=== PATIENT | male | born 1935 | race Caucasian/White ===

== ENCOUNTER 2018-11-07 09:30 | Emergency (ER) | payer OTHER, MEDICARE ==
[2018-11-07 10:01] VITALS: PULSE 84
--- NOTE | 2018-11-07 10:03 | PDOC ---
Attending Attestation - Resident Resident Name: HermosilloKiana - HPI HPI: 11/07/18 11:00 Pt presents to the Ed after sent from endoscopy for high blood pressure. Patient is asymptomatic. Took his blood pressure medications, but took them during his bowel prep. - Physicial Exam PE: 11/07/18 11:24 Agree with resident exam. Patient is alert and oriented and in no acute distress. ambulatory in the ED. - Medical Decision Making 11/07/18 11:28 Pt presents to the ED after sent in for hypertension. Asymptomatic. Hypertension resolved spontaneously. Will discharge home. patient will follow up with PMD tomorrow.
[2018-11-07 10:10] VITALS: BP 158/68; TEMP 98.4; BMI 27.1
--- NOTE | 2018-11-07 11:03 | PDOC ---
History of Present Illness - General Chief Complaint: Blood Pressure Problem Stated Complaint: HYPERTENSION Time Seen by Provider: 11/07/18 10:01 History Source: Patient Exam Limitations: No Limitations - History of Present Illness Initial Comments: 11/07/18 10:33 83YOM with h/o HTN and prior left pelvic fxr who p/w elevated BP noted at EGD/ colonoscopy suite (noted by their provider to be 207/112 ). He has been on carvedilol chronically and his dose was decreased back in from 6.5mg bid to 3.25 bid. He took his medication yesterday (morning and evening doses) but the evening dose was taken during active bowel prep for the colonoscopy, at which time he was passing liquid frequently. The patient also took his morning carvedilol today. He denies any symptoms at all and notes wanting to go home. Past History - Past Medical History Allergies/Adverse Reactions: Allergies Allergy/AdvReac Type Severity Reaction Status Date / Time No Known Allergies Allergy Verified 04/24/14 06:41 Home Medications: Ambulatory Orders Silodosin [Rapaflo] 8 mg PO DAILY 02/15/14 Atorvastatin Ca [Lipitor] 20 mg PO DAILY 04/18/14 Cholecalciferol (Vitamin D3) [Vitamin D3] 5,000 unit PO DAILY 04/18/14 Dutasteride [Avodart] 0.5 mg PO HS 04/18/14 Pantoprazole Sodium [Protonix -] 40 mg PO DAILY tablet.ec 04/26/14 Carvedilol 3.125 mg PO BID 11/04/18 Cyanocobalamin (Vitamin B-12) [Vitamin B12] 2,500 mcg PO DAILY 11/04/18 Anemia: No Asthma: No Cancer: No Cardiac Disorders: No CVA: No COPD: No CHF: No Dementia: No Diabetes: No GI Disorders: Yes (ACID REFLUX) Disorders: Yes (BPH) HTN: Yes Hypercholesterolemia: Yes Liver Disease: No Seizures: No Thyroid Disease: No - Surgical History Appendectomy: Yes Cholecystectomy: No Orthopedic Surgery: Yes (RIGHT LEG 1945,LEFT HIP REPLACEMENT) - Immunization History Immunization Up to Date: No - Psycho Social/Smoking Cessation Hx Smoking History: Never smoked Have you smoked in the past 12 months: No Information on smoking cessation initiated: No Hx Alcohol Use: No Drug/Substance Use Hx: No Substance Use Type: None Hx Substance Use Treatment: No Review of Systems - Review of Systems Able to Perform ROS?: Yes Comments:: 11/07/18 11:03 GEN: no fever, chills, malaise, generalized weakness, or weight change HEENT: no ear pain, sore throat, vision change, or eye pain CV: no chest pain, palpitations, lightheadedness, syncope, or edema RESP: no cough, wheezing, or SOB GI: no abdominal pain, nausea, vomiting, diarrhea, constipation, or white/black/ bloody stool : no dysuria, hematuria, incontinence, retention, bleeding, or discharge MSK: no neck/back pain, muscle weakness/pain, or joint swelling/pain NEURO: no headache, seizure, vertigo, numbness, tingling, or focal weakness PSYCH: no substance use, no behavior change SKIN: no jaundice, no rash ROS otherwise negative except as noted in HPI *Physical Exam - Vital Signs Last Vital Signs Temp Pulse Resp BP Pulse Ox 98.4 F 84 16 158/68 98 11/07/18 10:05 11/07/18 10:05 11/07/18 10:05 11/07/18 10:05 11/07/18 10:05 - Physical Exam Comments: 11/07/18 11:03 GENERAL: well-appearing, A/Ox4, no distress, answers questions appropriately, extremely pleasant, sitting in wheelchair HEENT: PERRLA, EOMI, moist mucous membranes NECK/BACK: no midline ttp, no spinal stepoff or deformity, no hematoma, full ROM , neck supple CARDIOVASCULAR: regular rate/rhythm, normal S1S2, no MGR, strong peripheral pulses, capillary refill <2 seconds, extremities wwp, no edema LUNGS/RESPIRATORY: no respiratory distress, CTAB GI/ABDOMEN: symmetric [id number], normoactive BS, soft, no ttp, no midline pulsatile masses : no CVA tenderness EXTREMITIES: no muscle atrophy, no acute deformity SKIN: warm and dry, no pallor, no jaundice, no rash, no bruising, no skin breakdown, no cuts, no lesions NEUROLOGICAL: GCS 15, CN II-XII grossly intact, 5/5 strength proximally and distally, no facial droop Medical Decision Making - Medical Decision Making 11/07/18 11:03 83YOM with h/o HTN presents with report of asymptomatic high blood pressure this morning in the setting of bowel prep yesterday for colonoscopy. Initial Vital Signs Temp Pulse Resp BP Pulse Ox 97.4 F L 84 18 150/102 H 96 11/07/18 09:55 11/07/18 09:55 11/07/18 09:55 11/07/18 09:55 11/07/18 09:55 Exam unremarkable. Repeat BP is 104/84 and patient remains asymptomatic. He does not want to go back to endoscopy suite and prefers to do endoscopy/ colonoscopy later. 11/07/18 11:23 Most likely the patient's evening dose of carvedilol was simply not absorbed last night. His BP has stabilized here in the ED and he was never symptomatic. Workup is not concerning for emergency-level pathology at this time. This patient is appropriate for discharge with close outpatient follow up. They are comfortable with this plan and will follow up with their primary care provider in 1-3 days. Specific return precautions are discussed and they will come back to the ER if necessary. Discharge - Discharge Information Problems reviewed: Yes Clinical Impression/Diagnosis: Hypertension Qualifiers: Hypertension type: unspecified Qualified Code(s): I10 - Essential (primary) hypertension Condition: Stable Disposition: HOME - Admission No - Follow up/Referral - Patient Discharge Instructions Patient Printed Discharge Instructions: DI for High Blood Pressure Additional Instructions: You were seen in the ER for high blood pressure. We did an exam, and retook your blood pressure, which was normal here in the ER. After our assessment, we do not believe you are having a medical emergency at this time, and we believe you are safe to go home. Please follow up with your regular PCP doctor in 1-3 days. Call their clinic, tell them you were seen in the ER, and tell them you need a follow-up appointment . If you have any new or worsening symptoms, especially headache, vision changes, numbness, tingling, weakness of one part of your body, neck pain, chest pain, shortness of breath, dizziness, or other symptoms, please come back to the ER at any time (24 hours a day). If you are having severe or life threatening symptoms, or symptoms that make it unsafe to drive or have someone drive you, please call 911. Otherwise, keep taking your blood pressure and other medications as prescribed. - Post Discharge Activity
== END 2018-11-07 12:00 | disposition home or self-care (01) ==
LOC: JER 09:30
DX: I10 Essential (primary) hypertension (principal); E78.00 Pure hypercholesterolemia, unspecified; N40.0 Benign prostatic hyperplasia without lower urinary tract symptoms; K21.9 Gastro-esophageal reflux disease without esophagitis; Z96.642 Presence of left artificial hip joint
CPT/HCPCS: 99281-25

== ENCOUNTER 2018-11-10 12:32 | Emergency (ER) | payer OTHER, MEDICARE ==
[2018-11-10 12:43] VITALS: BMI 26.4
--- NOTE | 2018-11-10 13:02 | PDOC ---
History of Present Illness - General Chief Complaint: Blood Pressure Problem Stated Complaint: BP PROBLEM - History of Present Illness Initial Comments: The pt is an 83M w/ a history of HTN, HLD, s/p R hip arthroplasty who presents for evaluation of HTN (180s at home). The pt then took an extra dose of his Carvedilol at 1100 (3.125mg). He noted persistent HTN and thus presented for evaluation. He denies ALEMAN, vision changes, chest pain, trouble breathing, SHEIKH, N/ V, dysuria, hematuria, or fever. His PCP is in the [facility] and no change has been made to his medications in the last 6-9 months. 11/10/18 13:19 Past History - Past Medical History Allergies/Adverse Reactions: Allergies Allergy/AdvReac Type Severity Reaction Status Date / Time No Known Allergies Allergy Verified 04/24/14 06:41 Home Medications: Ambulatory Orders Silodosin [Rapaflo] 8 mg PO DAILY 02/15/14 Atorvastatin Ca [Lipitor] 20 mg PO DAILY 04/18/14 Cholecalciferol (Vitamin D3) [Vitamin D3] 5,000 unit PO DAILY 04/18/14 Dutasteride [Avodart] 0.5 mg PO HS 04/18/14 Pantoprazole Sodium [Protonix -] 40 mg PO DAILY tablet.ec 04/26/14 Carvedilol 3.125 mg PO BID 11/04/18 Cyanocobalamin (Vitamin B-12) [Vitamin B12] 2,500 mcg PO DAILY 11/04/18 Anemia: No Asthma: No Cancer: No Cardiac Disorders: No CVA: No COPD: No CHF: No Dementia: No Diabetes: No GI Disorders: Yes (ACID REFLUX) Disorders: Yes (BPH) HTN: Yes Hypercholesterolemia: Yes Liver Disease: No Seizures: No Thyroid Disease: No - Surgical History Appendectomy: Yes Cholecystectomy: No Orthopedic Surgery: Yes (RIGHT LEG 1945,LEFT HIP REPLACEMENT) - Immunization History Immunization Up to Date: No - Psycho Social/Smoking Cessation Hx Smoking History: Never smoked Have you smoked in the past 12 months: No Hx Alcohol Use: No Drug/Substance Use Hx: No Substance Use Type: None Hx Substance Use Treatment: No Review of Systems - Review of Systems Able to Perform ROS?: Yes Comments:: GENERAL/CONSTITUTIONAL: No fever or chills. No weakness HEAD, EYES, EARS, NOSE AND THROAT: No change in vision. No change in hearing. No sore throat CARDIOVASCULAR: No chest pain or shortness of breath RESPIRATORY: Denies cough, hemoptysis GASTROINTESTINAL: No nausea, vomiting, diarrhea or constipation GENITOURINARY: No dysuria, frequency, or change in urination MUSCULOSKELETAL: No joint or muscle swelling or pain. No neck or back pain SKIN: No rash NEUROLOGIC: No headache, vertigo, loss of consciousness, or change in strength/ sensation ENDOCRINE: No increased thirst. No abnormal weight change HEMATOLOGIC/LYMPHATIC: No anemia, easy bleeding, or history of blood clots ALLERGIC/IMMUNOLOGIC: No hives or skin allergy 11/10/18 13:22 Is the patient limited Guinean proficient: No *Physical Exam - Vital Signs Last Vital Signs Temp Pulse Resp BP Pulse Ox 98.2 F 65 19 198/88 H 93 L 11/10/18 12:38 11/10/18 12:38 11/10/18 12:38 11/10/18 12:38 11/10/18 12:38 - Physical Exam Comments: GENERAL: Awake, alert, and oriented to person/place/time, in no acute distress HEAD: No signs of trauma, normocephalic, atraumatic EYES: PERRLA, EOMI, sclera anicteric, conjunctiva clear ENT: Hearing grossly normal, nares patent, oropharynx clear without exudates. No uvular deviation. Moist mucosa LUNGS: No distress, speaks in full sentences, clear to auscultation bilaterally HEART: Regular rate and rhythm, normal S1 and S2, no murmurs appreciated, peripheral pulses normal and equal bilaterally ABDOMEN: Soft, nontender, normoactive bowel sounds. No guarding, no rebound EXTREMITIES: Normal inspection, Normal range of motion, no edema. No clubbing or cyanosis NEUROLOGICAL: Cranial nerves II through XII grossly intact. 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 ED Course Pt repeat SBP 186 Pt w/o symptoms As pt is asymptomatic and took an extra hose of his home medication, will observe pt for hypotension Low suspicion for end-organ damage given history of BPs in 150s-160s and lack of symptoms. Will reassess 11/10/18 13:23 Pt's BP improved to SBP 150s, pt continues to be asymptomatic Plan for D/C w/ PCP f/u Discharge instructions and return precautions given Patient in agreement and verbalized understanding Dispo: Home 11/10/18 15:05 Discharge - Discharge Information Problems reviewed: Yes Clinical Impression/Diagnosis: Hypertension Qualifiers: Hypertension type: unspecified Qualified Code(s): I10 - Essential (primary) hypertension Condition: Improved Disposition: HOME - Admission No - Follow up/Referral Referrals: [facility] [Provider Group] - Patient Discharge Instructions Patient Printed Discharge Instructions: DI for High Blood Pressure Additional Instructions: You were seen in the Emergency Department for evaluation of high blood pressure. Your pressure normalized while here. Continue to take your medication as prescribed. Review the handout provided at discharge. Follow up with your primary care provider. Return to the Emergency Department if you develop fevers/ chills, headache, vision changes, chest pain, blood in your urine, worsening symptoms, or any new/concerning symptoms. - Post Discharge Activity
--- NOTE | 2018-11-10 15:10 | PDOC ---
Attending Attestation - Resident Resident Name: BrendenlisaArmond - ED Attending Attestation I have performed the following: I have examined & evaluated the patient, The case was reviewed & discussed with the resident, I agree w/resident's findings & plan - HPI HPI: 11/10/18 15:10 83M w/ a history of HTN, HLD, s/p R hip arthroplasty who presents for evaluation of HTN (180s at home). The pt then took an extra dose of his Carvedilol at 1100 (3.125mg). He noted persistent HTN and thus presented for evaluation. He denies ALEMAN, vision changes, chest pain, trouble breathing, SHEIKH, N/ V, dysuria, hematuria, or fever. - Physicial Exam PE: 11/10/18 15:10 Agree with the resident's HPI and PE as documented in the electronic medical record. NAD, well appearing, EOMI, PERRL, MMM, nl conjunctiva, anicteric; neck supple. lungs clear, RRR, abdomen soft nontender. Back nontender. CUTLER x4, no focal neuro deficits. No peripheral edema. normal color for ethnicity, WWP. no calf tenderness - Medical Decision Making 11/10/18 15:11 Vital Signs Temp Pulse Resp BP Pulse Ox 98.2 F 54 L 19 155/76 93 L 11/10/18 12:38 11/10/18 14:29 11/10/18 12:38 11/10/18 14:29 11/10/18 12:38 ED course: VS reviewed, downtrending BP (initial 198/90) asymptomatic HTN no indication for treatment and no indication test as low suspicion for end organ damage repeat BP at discharge down to 155/75 clinical recheck BP with PCP, stable for discharge, return precautions compliance with regimen no additional agents warranted at this time 11/10/18 15:12
[2018-11-10 15:23] VITALS: BP 146/78; PULSE 88; TEMP 98.5
== END 2018-11-10 15:25 | disposition home or self-care (01) ==
LOC: SUPCPDRO 12:32 → JER 12:32
DX: I10 Essential (primary) hypertension (principal); E78.00 Pure hypercholesterolemia, unspecified; N40.0 Benign prostatic hyperplasia without lower urinary tract symptoms; K21.9 Gastro-esophageal reflux disease without esophagitis; Z96.641 Presence of right artificial hip joint
CPT/HCPCS: 99281-25

== ENCOUNTER 2019-03-24 06:49 | Day surgery (SDC) | payer OTHER, MEDICARE ==
[2019-03-23 13:28] VITALS: BMI 28.4
[2019-03-24 09:59] VITALS: BP 156/81; PULSE 72; TEMP 98
--- NOTE | 2019-03-28 15:49 | PATH ---
Surgical Pathology Report Patient Name: DARSHAN NOLAND [facility]. Rec. #: [id number] /Age/Gender: 1935 (Age: 83) / M Account: [id number] Location: U-ENDOSCOPY Taken: 03/24/2019 Received: 03/24/2019 Reported: 03/28/2019 Physicians: Dannie Huang M.D. Specimen(s) Received A: SECOND PORTION DUODENUM AND BULB B: BX ANTRUM C: GE JUNCTION D: POLYPS FROM TRANSVERSE COLON, COLD SNARE E: POLYP FROM RIGHT COLON F: POLYP FROM CECUM, COLD SNARE Clinical History GERD, early satiety, screening for malignant neoplasm Postoperative diagnosis: Gastritis, GERD, hiatal hernia, diverticulosis Final Diagnosis A. SECOND PORTION OF DUODENUM AND BULB, BIOPSY: MODERATE CHRONIC DUODENITIS. B. 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 IMMUNOSTAIN IS NEGATIVE FOR H. PYLORI ORGANISMS. C. GE JUNCTION, BIOPSY: ESOPHAGOGASTRIC JUNCTION (SQUAMOCOLUMNAR) MUCOSA WITH NO PATHOLOGIC FINDINGS. NEGATIVE FOR INTESTINAL METAPLASIA. D. TRANSVERSE COLON, POLYPS, POLYPECTOMY: TUBULAR ADENOMA (S). E. RIGHT COLON, POLYP, BIOPSY: VEGETABLE MATTER. Comment: No colonic mucosa is identified. F. CECUM, POLYP, POLYPECTOMY: TUBULAR ADENOMA. Electronically Signed Christa Coughlin M.D. Gross Description A. Received in formalin, labeled "second portion of duodenum and bulb" are 3 lombardo, irregular portions of soft tissue averaging 0.3 cm. in greatest dimension. The specimens are submitted in toto in one cassette. B. Received in formalin, labeled "biopsy antrum" are 3 lombardo, irregular portions of soft tissue ranging from 0.3-0.8 cm. in greatest dimension. The specimens are submitted in toto in one cassette. C. Received in formalin, labeled "biopsy GE junction" are 2 lombardo, irregular portions of soft tissue measuring 0.4 and 0.5 cm. in greatest dimension. The specimens are submitted in toto in one cassette. D. Received in formalin, labeled "polyps transverse colon" are 3 lombardo, irregular portions of soft tissue ranging from 0.3-0.4 cm. in greatest dimension. The specimens are submitted in toto in one cassette. E. Received in formalin labeled "polyp right colon," is a 0.6 x 0.5 x 0.1 cm aggregate of organic debris. No definitive soft tissue is identified. The formalin is filtered and the specimen is entirely submitted in one cassette. F. Received in formalin, labeled "polyp from cecum" are 2 lombardo, irregular portions of soft tissue measuring 0.1 and 0.2 cm. in greatest dimension. The specimens are submitted in toto in one cassette. [facility]
== END 2019-03-24 10:49 | disposition home or self-care (01) ==
LOC: JASU-ENDO 06:49
PROVIDERS: ATTEND Internal Medicine Gastroenterology
PROC: 0DB68ZX Excision of Stomach, Via Natural or Artificial Opening Endoscopic, Diagnostic (ICD-10-PCS; 2019-03-24)
PROC: 0DB48ZX Excision of Esophagogastric Junction, Via Natural or Artificial Opening Endoscopic, Diagnostic (ICD-10-PCS; 2019-03-24)
PROC: 0DBK8ZX Excision of Ascending Colon, Via Natural or Artificial Opening Endoscopic, Diagnostic (ICD-10-PCS; 2019-03-24)
PROC: 0DBL8ZX Excision of Transverse Colon, Via Natural or Artificial Opening Endoscopic, Diagnostic (ICD-10-PCS; 2019-03-24)
PROC: 0DBH8ZX Excision of Cecum, Via Natural or Artificial Opening Endoscopic, Diagnostic (ICD-10-PCS; 2019-03-24)
PROC: 0DB98ZX Excision of Duodenum, Via Natural or Artificial Opening Endoscopic, Diagnostic (ICD-10-PCS; principal; 2019-03-24 08:00)
DX: Z12.11 Encounter for screening for malignant neoplasm of colon (principal); D12.2 Benign neoplasm of ascending colon; D12.3 Benign neoplasm of transverse colon; D12.0 Benign neoplasm of cecum; K22.70 Barrett's esophagus without dysplasia; K44.9 Diaphragmatic hernia without obstruction or gangrene; K64.8 Other hemorrhoids; K57.30 Diverticulosis of large intestine without perforation or abscess without bleeding; R10.13 Epigastric pain; K29.80 Duodenitis without bleeding; K29.50 Unspecified chronic gastritis without bleeding
CPT/HCPCS: 88305-TC; 88342-TC

== ENCOUNTER 2021-11-28 12:29 | Emergency (ER) | payer OTHER, MEDICARE ==
[2021-11-28 13:10] VITALS: TEMP 98; BMI 19.3
[2021-11-28 16:02] VITALS: BP 140/70; PULSE 70; RESP 17
== END 2021-11-28 16:02 | disposition home or self-care (01) ==
LOC: JER 12:29
DX: R19.7 Diarrhea, unspecified (principal)
CPT/HCPCS: 99282-25

== ENCOUNTER 2022-01-09 21:11 | Emergency (ER) | payer OTHER, MEDICARE ==
[2022-01-09 21:30] VITALS: RESP 20; BMI 19.0
[2022-01-09] MEDS ORDERED: LIDOCAINE 5% TOPICAL PATCH TP ONE (22:55)
[2022-01-09] MEDS ORDERED: ACETAMINOPHEN 325 MG TABLET (FP) PO ONE (22:55)
[2022-01-10 00:03] LABS: PH,URINE 5.5 (5.0-8.0); URINE APPEARANCE CLEAR; URINE BILIRUBIN NEGATIVE (NEGATIVE); URINE COLOR YELLOW; URINE GLUCOSE (UA) NEGATIVE (NEGATIVE); URINE KETONE NEGATIVE (NEGATIVE); URINE LEUK ESTERASE NEGATIVE (NEGATIVE); URINE NITRITE NEGATIVE (NEGATIVE); URINE PROTEIN NEGATIVE (NEGATIVE); URINE UROBILINOGEN 0.2 mg/dL (0.2-1.0)
[2022-01-10 00:31] LABS: ALBUMIN 3.7 g/dl (3.4-5.0)
[2022-01-10 00:34] LABS: CREATININE 1.1 mg/dL (0.55-1.3)
[2022-01-10 00:36] LABS: BILIRUBIN,TOTAL 0.4 mg/dL (0.2-1); TOT PROT 7.4 g/dl (6.4-8.2)
[2022-01-10] MEDS ORDERED: LIDOCAINE 5% TOPICAL PATCH ONE (00:51)
[2022-01-10] MEDS ORDERED: ACETAMINOPHEN 325 MG TABLET (FP) ONE ×2 (00:51→07:55)
[2022-01-10] MEDS ORDERED: KETOROLAC TROMETHAMINE 15 MG/ML VIAL IVPUSH ONE (01:33)
[2022-01-10 01:51] LABS: BASO % 0.4 % (0-2.0); EOS % 1.9 % (0-4.5); HEMATOCRIT 44.7 % (35.4-49); HEMOGLOBIN 14.8 GM/dL (11.7-16.9); LYMPH % 7.6 % (8-40); MCH 30.7 pg (25.7-33.7); MCHC 33.1 g/dl (32.0-35.9); MEAN CELL VOLUME 92.6 fl (80-96); MEAN PLT VOLUME 8.4 fl (7.5-11.1); MONO % 5.5 % (3.8-10.2); NEUT % 84.6 % (42.8-82.8); PLATELET COUNT 208 10^3/uL (134-434); RBC 4.82 M/mm3 (4.00-5.60); RDW 14.9 % (11.9-15.9); WHITE BLOOD COUNT 7.2 K/mm3 (4.0-10.0)
[2022-01-10] MEDS ORDERED: KETOROLAC TROMETHAMINE 15 MG/ML VIAL ONE (02:36)
[2022-01-10 06:27] VITALS: BP 109/66; PULSE 78; TEMP 98.8
[2022-01-10] MEDS ORDERED: ACETAMINOPHEN 325 MG TABLET (FP) PO ONE ×2 (07:52→07:54)
== END 2022-01-10 08:36 | disposition home or self-care (01) ==
LOC: JER 21:11
PROC: 3E0333Z Introduction of Anti-inflammatory into Peripheral Vein, Percutaneous Approach (ICD-10-PCS; principal; 2022-01-09)
DX: M54.50 Low back pain, unspecified (principal)
CPT/HCPCS: 36415; 72128-TC; 72131-TC; 74177-TC; 80053; 81003; 83605; 84132; 85025; 87086; 87186; 99285-25